=== PATIENT | female | born 1985 | race Caucasian/White ===

== ENCOUNTER 2025-03-23 14:56 | Emergency (ER) | payer MEDICAID ==
[~2025-03-23] VITALS: Ht 172.7 cm; Wt 56.7 kg
[2025-03-23 15:12] VITALS: BP 109/66; TEMP 98.3
[2025-03-23 15:39] VITALS: O2SAT 97
[2025-03-23] MEDS: BACITRACIN ZINC OINT PACKET 1 EA PACKET TP ONE (15:39)
== END 2025-03-23 15:40 | disposition home or self-care (01) ==
LOC: ER 15:03
DX: S40.211A Abrasion of right shoulder, initial encounter (principal); X58.XXXA Exposure to other specified factors, initial encounter; Y93.89 Activity, other specified; Y92.89 Other specified places as the place of occurrence of the external cause; Y99.8 Other external cause status